=== PATIENT | female | born 1990 | race Caucasian/White ===

== ENCOUNTER 2017-10-12 14:35 | Emergency (ER) | payer OTHER ==
--- NOTE | 2017-10-12 15:14 | RAD REPORT ---
EXAM DESCRIPTION: CT - Head C Spine Mpr Wo Con - 10/12/2017 2:55 pm CLINICAL HISTORY: Head and neck injury status post fall. Head and neck pain. Seizure COMPARISON: None. TECHNIQUE: Computed axial tomography of the head and cervical spine was obtained. Sagittal and coronal reconstruction was performed. All CT scans are performed using dose optimization technique as appropriate and may include automated exposure control or mA/KV adjustment according to patient size. FINDINGS: An intracranial bleed is not seen. The ventricles are normal in caliber. An extra-axial fl uid collection is not noted.Fluid within the visualized sinuses and mastoids is not seen A cervical fracture is not visualized. No dislocation is noted. IMPRESSION: No acute intracranial abnormality is seen. A cervical fracture is not visualized. If the patient continues to have symptoms to suggest intracra nial /spinal cord pathology then MRI would be recommended
[2017-10-12 15:51] LABS: Absolute Lymphocytes (CBC) 2.3 K/uL (0.7-4.9); Absolute Monocytes 0.6 K/uL (0.1-1.3); Absolute Neutrophil 9.8 K/uL (1.8-8.0); Basophils % 0.6 % (0-1.3); Eosinophils % 0.3 % (0-4.4); Hematocrit 45.6 % (36.0-45.0); Lymphocytes % 18.2 % (15.3-44.8); MCV 93.3 fL (80-100); MPV 8.9 fL (7.6-11.3); Monocytes % 4.4 % (3.3-12.3); RBC Red Blood Cell Count 4.89 M/uL (3.86-4.86)
[2017-10-12 16:02] LABS: ALT/SGPT 31 U/L (12-78); AST/SGOT 19 U/L (15-37); Albumin 3.4 g/dL (3.4-5.0); Alkaline Phosphatase 46 U/L (45-117); BUN Blood Urea Nitrogen 10 mg/dL (7-18); Bicarbonate 24 mmol/L (21-32); Bilirubin Total 0.8 mg/dL (0.2-1.0); Glucose Level 84 mg/dL (74-106); Potassium 3.5 mmol/L (3.5-5.1); Protein, Total 7.6 g/dL (6.4-8.2); Sodium Level 140 mmol/L (136-145)
--- NOTE | 2017-10-12 16:15 | ER ---
Nurse's Notes [facility] Name: Meron Newman Age: 27 yrs Sex: Female : 1990 Arrival Date: 10/12/2017 Time: 14:36 Bed External Waiting [facility] MD: Diagnosis: Syncope and collapse-vasovagal syncope Presentation: 10/12 14:44 Presenting complaint: EMS states: pt cut her finger while at work, then sat down because she felt woozy. then passed out face first from the chair onto the hard floor. Pt then had a witnessed seizure, body spazmed up, LOC, and hands clenched and body rocked on floor for about 3 min. pt was aaox4 upon ems arrival, hyperventilating, bgl was 101, given 1L fluids in route due to pt HR being high 90's, now 100's. Transition of care: patient was not received from another setting of care. Onset of symptoms was October 12, 2017 at 14:00. Risk Assessment: Do you want to hurt yourself or someone else? Patient reports no desire to harm self or others. Initial Sepsis Screen: Does the patient meet any 2 criteria? No. Patient's initial sepsis screen is negative. Does the patient have a suspected source of infection? No. Patient's initial sepsis screen is negative. Care prior to arrival: IV initiated. 20 GA, in the right forearm, Glucose check: 101 1L NS. 14:44 Method Of Arrival: EMS: [facility] 14:44 Acuity: AUBREY 3 ch Triage Assessment: 14:30 General: Appears in no apparent distress. comfortable, Behavior is cooperative, ch appropriate for age, anxious. Pain: Complains of pain in forehead, inner aspect of left eyebrow, middle aspect of left eyebrow and outer aspect of left eyebrow Pain currently is 7 out of 10 on a pain scale. Pain began suddenly. Neuro: Level of Consciousness is awake, alert, obeys commands, Oriented to person, place, time, situation, Core Filer are equal bilaterally Moves all extremities. Full function Gait is steady, Speech is normal, Facial symmetry appears normal, Facial symmetry: tongue is midline, Pupils are PERRLA. Cardiovascular: Heart tones S1 S2 present. Respiratory: Airway is patent Respiratory effort is even, unlabored, Breath sounds are clear bilaterally. GI: No signs and/or symptoms were reported involving the gastrointestinal system. Derm: Bruising that is dark purple, on left eye. Musculoskeletal: Circulation, motion, and sensation intact. 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 - Social history:: Smoking status: Patient/guardian denies using tobacco. - Ebola Screening: : Patient negative for fever greater than or equal to 101.5 degrees Fahrenheit, and additional compatible Ebola Virus Disease symptoms Patient denies exposure to infectious person Patient denies travel to an Ebola-affected area in the 21 days before illness onset No symptoms or risks identified at this time. - Family history:: not pertinent. Screenin:52 Abuse screen: Denies threats or abuse. Denies injuries from another. Nutritional ch screening: No deficits noted. Tuberculosis screening: No symptoms or risk factors identified. Fall Risk None identified. Assessment: 14:52 Reassessment: pt in ct now. 16:07 Reassessment: Patient appears in no apparent distress at this time. Patient and/or ch family updated on plan of care and expected duration. Pain level reassessed. Patient is alert, oriented x 3, equal unlabored respirations, skin warm/dry/pink. Patient states feeling better. Patient states symptoms have improved. Neuro: No deficits noted. Cardiovascular: Heart tones present. Respiratory: Airway is patent Respiratory effort is even, unlabored, Breath sounds are clear bilaterally. 17:30 Injury Description: Abrasion sustained to palmar aspect of distal phalanx of left ring ch finger is bleeding, dirty, pt has bleeding, wound cleaned with hydrogen peroxide, dressed with adaptic, neosporin, and kerlex. was sustained 2-4 hours ago. 17:30 Reassessment: Patient appears in no apparent distress at this time. Patient and/or ch family updated on plan of care and expected duration. Pain level reassessed. Patient is alert, oriented x 3, equal unlabored respirations, skin warm/dry/pink. Patient states feeling better. Patient states symptoms have improved. Vital Signs: 14:30 BP 115 / 78; Pulse 94; Resp 15; Temp 98.3; Pulse Ox 99% on R/A; Weight 58.97 kg; Height ch 5 ft. (152.40 cm); Pain 7/10; 16:00 BP 122 / 78; Pulse 81; Resp 16; Pulse Ox 99% on R/A; Pain 3/10; ch 17:00 BP 106 / 62; Pulse 79; Resp 16; Pulse Ox 100% on R/A; ch 14:30 Body Mass Index 25.39 (58.97 kg, 152.40 cm) Patricia Coma Score: 14:30 Eye Response: spontaneous(4). Verbal Response: oriented(5). Motor Response: obeys commands(6). Total: 15. ED Course: 14:30 Arm band placed on left wrist. Patient placed in an exam room, on a stretcher, on pulse ch oximetry. 14:36 Patient arrived in ED. rg4 14:37 Julio Tirado MD is Attending Physician. [facility] 14:43 Alma Grey, RN is Primary Nurse. 14:47 Triage completed. 14:52 Patient has correct armband on for positive identification. Placed in gown. Bed in low ch position. Call light in reach. Side rails up X 1. Adult w/ patient. Seizure precautions initiated. Pulse ox on. NIBP on. 14:52 No provider procedures requiring assistance completed. Maintain EMS IV. Dressing ch intact. Good blood return noted. Site clean \T\ dry. Gauge \T\ site: 20 R FA. 14:55 CT Head C Spine In Process Unspecified. EDMS 16:20 IV discontinued, intact, bleeding controlled, No redness/swelling at site. Pressure ch dressing applied. 18:26 Primary Nurse role handed off by Alma Grey, RN iw Administered Medications: 16:00 Drug: NS 0.9% 1000 ml Route: IV; Rate: 1 bolus; Site: right forearm; 17:00 Follow up: IV Status: Completed infusion; IV Intake: 1000ml 10/13 08:05 Not Given (Patient Refused): Tylenol 650 mg PO once ch Intake: 10/12 17:00 IV: 1000ml; Total: 1000ml. Outcome: 16:14 Discharge ordered by . beatrice 17:12 Patient left the ED. mh5 18:20 Discharged to home ambulatory, with family. 18:20 Condition: improved 18:20 Discharge instructions given to patient, family, Instructed on discharge instructions, follow up and referral plans. medication usage, Demonstrated understanding of instructions, follow-up care. 18:28 Patient left the ED. iw Signatures: Dispatcher [employer] EDMS Alma Grey RN RN ch Anderson, Corey, MD MD cha Williams, Irene RN Farzana Mendiola 4 Awa [facility] Corrections: (The following items were deleted from the chart) 10/13 08: 03:50 Reassessment: Patient appears in no apparent distress at this time. Patient ch and/or family updated on plan of care and expected duration. Pain level reassessed. Patient is alert, oriented x 3, equal unlabored respirations, skin warm/dry/pink. Patient states feeling better. Patient states symptoms have improved. 08: 03:50 Injury Description: Abrasion sustained to palmar aspect of distal phalanx of left ring finger is bleeding, dirty, pt has bleeding 08:08 07:21 Discharged to home ambulatory, with family, [facility] 08:08 07:21 Condition: improved [facility] 08:08 07:21 Discharge instructions given to patient, family, Instructed on discharge instructions, follow up and referral plans. medication usage, Demonstrated understanding of instructions, follow-up care,
--- NOTE | 2017-10-12 16:15 | EDPHYS ---
Physician Documentation [facility] Name: Meron Newman Age: 27 yrs Sex: Female : 1990 Arrival Date: 10/12/2017 Time: 14:36 Bed External Waiting Private MD: ED Physician Julio Tirado HPI: 10/12 16:08 This 27 yrs old Female presents to ER via EMS with complaints of Seizure. beatrice 16:08 The patient presents after having a single isolated seizure, that lasted 1 minute(s). beatrice Character of seizure(s): Loss of consciousness: the patient experienced loss of consciousness, Motor activity: generalized, Incontinence: none, Apnea: the patient did not experience apnea, Circulation: the patient did not experience evidence of pulse disturbance, vasovagal syncope initiated. Seizure onset: just prior to arrival. Context: occurred at work, cut finger, saw blood, hx of vaso vagal. Seizure Hx: Cause: vaso vagal syncope, Last seizure: The patient's last seizure was approximately 20 year(s) ago. Associated injury: Head/face: left eye, contusion, swelling, tenderness. EMS care: none. The patient has experienced similar episodes in the past, a few times. 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 - Social history:: Smoking status: Patient/guardian denies using tobacco. - Ebola Screening: : Patient negative for fever greater than or equal to 101.5 degrees Fahrenheit, and additional compatible Ebola Virus Disease symptoms Patient denies exposure to infectious person Patient denies travel to an Ebola-affected area in the 21 days before illness onset No symptoms or risks identified at this time. - Family history:: not pertinent. ROS: 16:08 Constitutional: Negative for fever, chills, and weight loss, ENT: Negative for injury, beatrice pain, and discharge, Neck: Negative for injury, pain, and swelling, Cardiovascular: Negative for chest pain, palpitations, and edema, Respiratory: Negative for shortness of breath, cough, wheezing, and pleuritic chest pain, Abdomen/GI: Negative for abdominal pain, nausea, vomiting, diarrhea, and constipation, Back: Negative for injury and pain, : Negative for injury, bleeding, discharge, and swelling, MS/Extremity: Negative for injury and deformity, Skin: Negative for injury, rash, and discoloration, Psych: Negative for depression, anxiety, suicide ideation, homicidal ideation, and hallucinations, Allergy/Immunology: Negative for hives, rash, and allergies, Endocrine: Negative for neck swelling, polydipsia, polyuria, polyphagia, and marked weight changes, Hematologic/Lymphatic: Negative for swollen nodes, abnormal bleeding, and unusual bruising. 16:08 Eyes: Positive for pain, swelling, of the left eyebrow and left upper eyelid. 16:08 Neuro: Positive for loss of consciousness, syncope, weakness. Exam: 16:08 Constitutional: This is a well developed, well nourished patient who is awake, alert, beatrice and in no acute distress. Eyes: Pupils equal round and reactive to light, extra-ocular motions intact. Lids and lashes normal. Conjunctiva and sclera are non-icteric and not injected. Cornea within normal limits. Periorbital areas with no swelling, redness, or edema. ENT: Nares patent. No nasal discharge, no septal abnormalities noted. Tympanic membranes are normal and external auditory canals are clear. Oropharynx with no redness, swelling, or masses, exudates, or evidence of obstruction, uvula midline. Mucous membranes moist. Neck: Trachea midline, no thyromegaly or masses palpated, and no cervical lymphadenopathy. Supple, full range of motion without nuchal rigidity, or vertebral point tenderness. No Meningismus. Chest/axilla: Normal chest wall appearance and motion. Nontender with no deformity. No lesions are appreciated. Cardiovascular: Regular rate and rhythm with a normal S1 and S2. No gallops, murmurs, or rubs. Normal PMI, no JVD. No pulse deficits. Respiratory: Lungs have equal breath sounds bilaterally, clear to auscultation and percussion. No rales, rhonchi or wheezes noted. No increased work of breathing, no retractions or nasal flaring. Abdomen/GI: Soft, non-tender, with normal bowel sounds. No distension or tympany. No guarding or rebound. No evidence of tenderness throughout. Back: No spinal tenderness. No costovertebral tenderness. Full range of motion. Skin: Warm, dry with normal turgor. Normal color with no rashes, no lesions, and no evidence of cellulitis. MS/ Extremity: Pulses equal, no cyanosis. Neurovascular intact. Full, normal range of motion. Neuro: Awake and alert, GCS 15, oriented to person, place, time, and situation. Cranial nerves II-XII grossly intact. Motor strength 5/5 in all extremities. Sensory grossly intact. Cerebellar exam normal. Normal gait. Psych: Awake, alert, with orientation to person, place and time. Behavior, mood, and affect are within normal limits. 16:08 Head/face: Noted is contusion, swelling, tenderness, that is mild, of the left eye. Vital Signs: 14:30 BP 115 / 78; Pulse 94; Resp 15; Temp 98.3; Pulse Ox 99% on R/A; Weight 58.97 kg; Height ch 5 ft. (152.40 cm); Pain 7/10; 16:00 BP 122 / 78; Pulse 81; Resp 16; Pulse Ox 99% on R/A; Pain 3/10; ch 17:00 BP 106 / 62; Pulse 79; Resp 16; Pulse Ox 100% on R/A; ch 14:30 Body Mass Index 25.39 (58.97 kg, 152.40 cm) Patricia Coma Score: 14:30 Eye Response: spontaneous(4). Verbal Response: oriented(5). Motor Response: obeys commands(6). Total: 15. MDM: 14:37 Patient medically screened. [facility] 10/12 14:41 Order name: CBC with Diff; Complete Time: 16:08 [facility] 10/12 14:41 Order name: Comprehensive Metabolic Panel; Complete Time: 16:08 [facility] 10/12 14:41 Order name: CT Head C Spine; Complete Time: 16:08 [facility] 10/12 18:27 Order name: Urine Dipstick--Ancillary (enter results) 10/12 18:28 Order name: Urine --Ancillary (enter results) 10/12 14:41 Order name: Urine Dipstick-Ancillary (obtain specimen); Complete Time: 16:30 [facility] 10/12 14:41 Order name: Urine Test (obtain specimen); Complete Time: 16:30 [facility] 10/12 14:41 Order name: Seizure Precautions; Complete Time: 16:30 [facility] 10/12 16:08 Order name: Ice pack; Complete Time: 16:30 [facility] Administered Medications: 16:00 Drug: NS 0.9% 1000 ml Route: IV; Rate: 1 bolus; Site: right forearm; 17:00 Follow up: IV Status: Completed infusion; IV Intake: 1000ml 10/13 08:05 Not Given (Patient Refused): Tylenol 650 mg PO once Disposition: 10/12/17 16:14 Discharged to Home. Impression: Syncope and collapse - vasovagal syncope. - Condition is Stable. - Discharge Instructions: Head Injury, Adult, Syncope, Weakness, Syncope, [id number], Head Injury, Adult, [id number], Vasovagal Syncope, Adult. - Medication Reconciliation Form, Thank You Letter, Antibiotic Education, Prescription Opioid Use, Work release form form. - Follow up: Private Physician; When: 2 - 3 days; Reason: Recheck today's complaints, Continuance of care, Re-evaluation by your physician. - Problem is new. - Symptoms have improved. Signatures: Dispatcher [employer] EDMS Alma Grey RN RN ch Anderson, Corey, MD MD cha Williams, Irene, RN RN Awa [facility] Corrections: (The following items were deleted from the chart) 10/12 17:12 16:14 10/12/2017 16:14 Discharged to Home. Impression: Syncope and collapse - vasovagal mh5 syncope. Condition is Stable. Forms are Medication Reconciliation Form, Thank You Letter, Antibiotic Education, Prescription Opioid Use. Follow up: Private Physician; When: 2 - 3 days; Reason: Recheck today's complaints, Continuance of care, Re-evaluation by your physician. Problem is new. Symptoms have improved. [facility] 18:28 17:12 10/12/2017 16:14 Discharged to Home. Impression: Syncope and collapse - vasovagal iw syncope. Condition is Stable. Discharge Instructions: Syncope, Weakness, Syncope, [id number], Vasovagal Syncope, Adult, Head Injury, Adult, Head Injury, Adult, [id number]. Forms are Medication Reconciliation Form, Thank You Letter, Antibiotic Education, Prescription Opioid Use, Work release form. Follow up: Private Physician; When: 2 - 3 days; Reason: Recheck today's complaints, Continuance of care, Re-evaluation by your physician. Problem is new. Symptoms have improved. mh5
[2017-10-12 19:11] LABS: Urine Blood TRACE (NEG); Urine Glucose NEGATIVE (NEG); Urine Protein NEGATIVE (NEG)
== END 2017-10-12 18:28 | disposition home or self-care (01) ==
LOC: ER 14:35
DX: R55 Syncope and collapse (principal); Z88.0 Allergy status to penicillin
CPT/HCPCS: 36415; 70450; 72125; 80053; 81003; 81025; 85025; 96360; 99284

== ENCOUNTER 2022-12-24 23:15 | Emergency (ER) | payer BC, OTHER ==
--- OUTSIDE RECORDS SUMMARY | 2022-12-24 23:18 | XMS REPORT | Continuity of Care Document ---
:1990 Author Organization [facility] t Address [address] [place] [address] [address] [place] [address] Care Team Providers Name Role Phone Felix Zacarias Attending Clinician Unavailable Lelia Attending Clinician Unavailable Felix Zacarias Admitting Clinician Unavailable Lelia Admitting Clinician Unavailable Physician, No Primary or Family Admitting Clinician Unavaila ble Payers Payer Name Policy Type Policy Number Effective Date Expiration Date S ource Problems This patient has no known problems. Allergies, Adverse Reactions, Alerts This patient has no known allergies or adverse reactions. Medications This patient has no known medications. Procedures This patient has no known procedures. Encounters Start End Encounter Admission Attending Care Care Encounter Source Date/Time Date/Time Type Type Clinicians Facility Department ID 2022-04-02 2022-04-02 Outpatient CHERRY Tapia [facility] [id number] [facility] 12:00:00 12:00:00 [facility], 37 [facility] 2020-06-21 2020-06-21 Outpatient Heatly_K VFP VFP [id number] [facility] 10:53:00 10:53:00 [id number] [facility] 2020-03-28 2020-03-28 Outpatient CHERRY Tapia [facility] [place] [id number] [facility] 12:00:00 12:00:00 [facility], 11 [facility] Results Test Description Test Time Test Comments Results Result Comments Source POTTS BREAST BIOPSY 2018-12-24 16:15:00 RUN DATE: 12/24/18 [facility] PAGE 1 RUN TIME: 1615 Specimen Inquiry RUN USER: INTERFACE CHEL IENT: BECKY DUMONT LOC: GAYATHRI Su #: [id number] AGE/SX: 28/F ROOM: RE12/23/18REG DR: Felix Zacarias : 89 BED: DIS: STATUS: PRE REF TLOC: SPEC #: [id number] RECD: 12/23/18 STATUS: MARY LOU REQ #: [id number] FLOWER: 12/23/[address] [facility] [address]: Felix Zacarias MD ENTERED: 12/23/18 SP TYPE: KATLYN MASTERSON DR: No Primary or Family PhysicianORDERED: KATLYN BILLING COPIES TO: No Primary or Family Physician Felix Zacarias MD [id number] [address] HISTOLOGY: TISSUE ID BLK PCS JOSE M LEV PROCEDURE DISPOSITION ____ ___ ___ ___ BREAST, NOS A 1 2 PROCEDURES: KATLYN RODRIGUEZ (12/23/18-1423) TISSUES: A. BREAST, NOS - RIGHT BREAST MASS BIOPSY @ 11:00 KATLYN PATHOLOGY REPORT Result ID: [id number] Clinical History Right breast mass Diagnosis Breast, right, @ 11 o'clock, 6 cm from nipple, ultrasound-guided biopsy: FIBROADENOMA Gross Description "Right breast mass biopsy @ 11 o'clock, 6 cm from nipple" Received in formalin are three thin cores of valdivia soft tissue, 0.3 - 1.2 cm in greatest dimension. The entire specimen is submitted as A. /pdb Fixation time: The specimen was obtained on December 23, 2018 and placed in formalin at 1325 [address], processor started on December 24, 2018 at 0[address], fixation time 13 hours 35 minutes. CONTINUED ON NEXT PAGE RUN DATE: 12/24/18 [facility] PAGE 2 RUN TIME: 1615 Specimen Inquiry RUN USER: INTERFACE ALEKSANDR [place] #: [id number] PATIENT: BECKY DUMONT #[id number] (Continued)-------- -------- POTTS PATHOLOGY REPORT (Continued) Microscopic Findings "Right breast mass biopsy @ 11 o'clock, 6 cm from nipple" Sections demonstrate breast parenchyma. Portions of parenchyma demonstrate prominent fibrous tissue with associated branching ductal structures. No evidence of atypical hyperplasia, carcinoma in situ, or invasive carcinoma is seen. ELECTRONIC SIGNATURE Bhargav Bahena M.D. [phone]------- --------- Signed SIGNATURE ON Bhargav Cabrera 12/24/18 1615 END OF REPORT
[2022-12-25 00:40] LABS: Absolute Lymphocytes (CBC) 3.7 K/uL (0.7-4.9); Hematocrit 40.7 % (36.0-45.0); MCV 92.8 fL (80-100); MPV 8.8 fL (7.6-11.3); Platelets 273 thou/uL (152-406); RBC Red Blood Cell Count 4.39 M/uL (3.86-4.86)
[2022-12-25 00:47] LABS: Protime INR 0.9
[2022-12-25 00:48] LABS: Specific Gravity 1.021 (1.005-1.030); Urine Bacteria None Seen /HPF (<20); Urine Bilirubin NEGATIVE (Negative); Urine Blood Negative (Negative); Urine Clarity Extremely Turbid (Clear); Urine Color Light-Yellow (Yellow); Urine Glucose NEGATIVE (Negative); Urine Mucus Slight /HPF (None Seen); Urine Protein 1+ (Negative); Urine RBC <5 /HPF (None Seen); Urine Urobilinogen Normal (Normal); Urine pH 6.5 (5.0-7.0)
[2022-12-25] MEDS ORDERED: NA CHLORIDE 0.9% 1,000 ML ONE (00:51)
[2022-12-25 02:23] LABS: Potassium 3.3 mEq/L (3.5-5.1); Sodium Level 141 mEq/L (136-145)
[2022-12-25 02:26] LABS: Albumin 2.9 g/dL (3.4-5.0); BUN Blood Urea Nitrogen 14 mg/dL (7-18); Bicarbonate 29 mEq/L (21-32); Glucose Level 122 mg/dL (74-106); Magnesium 2.1 mg/dL (1.6-2.4)
[2022-12-25 02:28] LABS: Bilirubin Direct 0.2 mg/dL (0-0.2); Glomerular Filtration Rate 93 ml/min (=/>90)
[2022-12-25 02:29] LABS: ALT/SGPT 29 U/L (13-56); AST/SGOT 12 U/L (15-37)
[2022-12-25 02:30] LABS: Bilirubin Indirect, Calculated 0.3 mg/dL (0.2-0.8); Bilirubin Total 0.5 mg/dL (0.2-1.0); Protein, Total 6.6 g/dL (6.4-8.2)
[2022-12-25 02:31] LABS: Alkaline Phosphatase 56 U/L (45-117)
[2022-12-25 02:34] LABS: Ferritin 50.5 ng/mL (8-388); NT PRO-BNP 36 pg/mL (<125); Troponin High Sensitivity < 3.0 pg/mL (<58.9)
--- NOTE | 2022-12-25 02:47 | ER ---
Nurse's Notes [facility] Name: Meron Newman Age: 32 yrs Sex: Female : 1990 Arrival Date: 12/24/2022 Time: 23:15 Bed 12 Private MD: Diagnosis: Syncope Near-VASOVAGAL;Weakness;Hypokalemia Presentation: 12/24 23:18 Chief complaint: Patient states: left flank pain with nausea. went to restroom to vomit lg3 and woke up sometime after with face on toilet rim. episode unwitnessed. pain to upper lip and forehead. Coronavirus screen: Client denies travel out of the [place] in the last 14 days. At this time, the client does not indicate any symptoms associated with coronavirus-19. Ebola Screen: No symptoms or risks identified at this time. Initial Sepsis Screen: Does the patient meet any 2 criteria? No. Patient's initial sepsis screen is negative. Does the patient have a suspected source of infection? No. Patient's initial sepsis screen is negative. Risk Assessment: Do you want to hurt yourself or someone else? Patient reports no desire to harm self or others. Onset of symptoms was December 24, 2022. 23:18 Method Of Arrival: Ambulatory lg3 23:18 Acuity: AUBREY 3 lg3 Triage Assessment: 23:21 General: Appears in no apparent distress. comfortable, Behavior is calm, cooperative. lg3 Pain: Complains of pain in face and back. EENT: No deficits noted. Neuro: Mortensen Agitation-Sedation Scale (RASS): -1 Drowsy Level of Consciousness is awake, alert, obeys commands, Oriented to person, place, time, situation. Cardiovascular: No deficits noted. Denies chest pain, shortness of breath, Capillary refill < 3 seconds Clubbing of nail beds is absent JVD is absent Patient's skin is warm and dry. Respiratory: No deficits noted. Airway is patent Respiratory effort is even, unlabored, Respiratory pattern is regular, symmetrical. GI: No deficits noted. No signs and/or symptoms were reported involving the gastrointestinal system. : No deficits noted. No signs and/or symptoms were reported regarding the genitourinary system. Derm: No deficits noted. No signs and/or symptoms reported regarding the dermatologic system. Skin is intact, is healthy with good turgor, Skin is dry, Skin is normal, Skin temperature is warm. Musculoskeletal: No deficits noted. Circulation, motion, and sensation intact. Range of motion: intact in all extremities. 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 - Social history:: Smoking status: Patient denies any tobacco usage or history of. Patient uses alcohol, occasionally. - Family history:: not pertinent. Screenin/09 00:32 [facility] ED Fall Risk Assessment (Adult) History of falling in the last 3 months, vc1 including since admission Yes- physiologic fall (2 pts) Confusion or Disorientation No (0 pts) Intoxicated or Sedated No (0 pts) Impaired Gait No (0 pts) Mobility Assist Device Used No (0 pt) Altered Elimination No (0 pt) Score/Fall Risk Level 0 - 2 = Low Risk Oriented to surroundings, Maintained a safe environment, Educated pt \T\ family on fall prevention, incl call for assistance when getting out of bed. Abuse screen: Denies threats or abuse. Nutritional screening: No deficits noted. Tuberculosis screening: No symptoms or risk factors identified. Assessment: 00:41 Reassessment: Patient and/or family updated on plan of care and expected duration. Pain vc1 level reassessed. Patient is alert, oriented x 3, equal unlabored respirations, skin warm/dry/pink. Patient states feeling better. Patient states symptoms have improved. 03:28 Reassessment: Patient and/or family updated on plan of care and expected duration. Pain vc1 level reassessed. Patient is alert, oriented x 3, equal unlabored respirations, skin warm/dry/pink. Patient states feeling better. Patient states symptoms have improved. Vital Signs: 12/24 23:18 BP 131 / 83; Pulse 80; Resp 17 S; Temp 98.4(O); Pulse Ox 99% on R/A; Weight 70.31 kg lg3 (R); Height 5 ft. 1 in. (R); 12/25 00:41 BP 114 / 89; Pulse 98; Resp 18; Pulse Ox 98% ; vc1 01:00 BP 120 / 80; Pulse 86; Resp 18; Pulse Ox 100% ; vc1 02:00 BP 113 / 83; Pulse 84; Resp 18; Pulse Ox 99% ; vc1 03:00 BP 107 / 75; Pulse 88; Resp 18; Pulse Ox 99% ; vc1 03:27 BP 113 / 69 Supine; Pulse 91; vc1 03:27 BP 113 / 69 Sitting; Pulse 91; vc1 03:27 BP 119 / 82 Standing; Pulse 87; vc1 12/24 23:18 Body Mass Index 29.29 (70.31 kg, 154.94 cm) lg3 ED Course: 12/24 23:18 Patient arrived in ED. lg3 23:20 Triage completed. lg3 23:21 Arm band placed on left wrist. lg3 23:22 Julio Tirado MD is Attending Physician. beatrice 23:36 Marissa Kyle, DAWNA is Primary Nurse. vc1 23:42 XRAY Chest (1 view) In Process Unspecified. EDMS 11 00:32 Patient has correct armband on for positive identification. Bed in low position. Call vc1 light in reach. Client placed on continuous cardiac and pulse oximetry monitoring. NIBP monitoring applied. 00:37 Inserted saline lock: 20 gauge in left upper arm, using aseptic technique. ultrasound as6 guided, long catheter. 01:41 CT Stone Protocol In Process Unspecified. EDMS 01:41 CT Head Brain wo Cont In Process Unspecified. EDMS 02:46 Twan Canales MD is Referral Physician. beatrice 03:41 No provider procedures requiring assistance completed. IV discontinued, intact, vc1 bleeding controlled, No redness/swelling at site. Pressure dressing applied. Administered Medications: 00:41 Drug: NS 0.9% IV 1000 ml IV at 1 bolus Per protocol; 1000 mL bolus Route: IV; Rate: 1 vc1 bolus; Site: left antecubital; 02:00 Follow up: IV Status: Completed infusion vc1 03:25 Drug: Potassium PO Effervescent Tablet 25 mEq PO once; dissolve in 4 ounces of water or vc1 juice Route: PO; 03:41 Follow up: Response: No adverse reaction; Marked relief of symptoms vc1 Medication: 00:32 VIS not applicable for this client. vc1 Outcome: 02:47 Discharge ordered by MD. barron 03:41 Discharged to home ambulatory, with significant other, vc1 03:41 Condition: good 03:41 Discharge instructions given to patient, Instructed on discharge instructions, follow up and referral plans. medication usage, Demonstrated understanding of instructions, follow-up care, medications, Prescriptions given X 1, 03:42 Patient left the ED. vc1 Signatures: Dispatcher [employer] EDMS Julio Tirado MD MD cha Gibson, Lacie RN RN lg3 Oren Llamas RN RN as6 Marissa Kyle RN RN vc1
--- NOTE | 2022-12-25 02:47 | EDPHYS ---
Physician Documentation [facility] Name: Meron Newman Age: 32 yrs Sex: Female : 1990 Arrival Date: 12/24/2022 Time: 23:15 Bed 12 Private MD: KASSANDRA Physician Julio Tirado HPI: 12/24 23:42 This 32 yrs old Female presents to ER via Ambulatory with complaints of beatrice syncope at home, left flank pain. 23:42 The patient complains of pain in the left low back and left mid back. The pain radiates beatrice to the left low back and left mid back. Onset: The symptoms/episode began/occurred just prior to arrival. Modifying factors: The symptoms are alleviated by nothing. the symptoms are aggravated by nothing. The patient presents with pain that is acute, with no known mechanism of injury. The symptoms are located in the left low back and left mid back. Associated signs and symptoms: Pertinent positives: nausea, weakness. 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 - Social history:: Smoking status: Patient denies any tobacco usage or history of. Patient uses alcohol, occasionally. - Family history:: not pertinent. ROS: 23:42 Constitutional: Negative for fever, chills, and weight loss, Eyes: Negative for injury, beatrice pain, redness, and discharge, ENT: Negative for injury, pain, and discharge, Neck: Negative for injury, pain, and swelling, Cardiovascular: Negative for chest pain, palpitations, and edema, Respiratory: Negative for shortness of breath, cough, wheezing, and pleuritic chest pain, Abdomen/GI: Negative for abdominal pain, nausea, vomiting, diarrhea, and constipation, : Negative for injury, bleeding, discharge, and swelling, MS/Extremity: Negative for injury and deformity, Skin: Negative for injury, rash, and discoloration, Psych: Negative for depression, anxiety, suicide ideation, homicidal ideation, and hallucinations, Allergy/Immunology: Negative for hives, rash, and allergies, Endocrine: Negative for neck swelling, polydipsia, polyuria, polyphagia, and marked weight changes, Hematologic/Lymphatic: Negative for swollen nodes, abnormal bleeding, and unusual bruising, 23:42 Back: Positive for pain at rest, pain with movement, flank pain, on the left, 23:42 Neuro: Positive for headache, Exam: 23:42 Constitutional: This is a well developed, well nourished patient who is awake, alert, beatrice and in no acute distress. Head/Face: Normocephalic, atraumatic. Eyes: Pupils equal round and reactive to light, extra-ocular motions intact. Lids and lashes normal. Conjunctiva and sclera are non-icteric and not injected. Cornea within normal limits. Periorbital areas with no swelling, redness, or edema. ENT: Nares patent. No nasal discharge, no septal abnormalities noted. Tympanic membranes are normal and external auditory canals are clear. Oropharynx with no redness, swelling, or masses, exudates, or evidence of obstruction, uvula midline. Mucous membranes moist. Neck: Trachea midline, no thyromegaly or masses palpated, and no cervical lymphadenopathy. Supple, full range of motion without nuchal rigidity, or vertebral point tenderness. No Meningismus. Chest/axilla: Normal chest wall appearance and motion. Nontender with no deformity. No lesions are appreciated. Cardiovascular: Regular rate and rhythm with a normal S1 and S2. No gallops, murmurs, or rubs. Normal PMI, no JVD. No pulse deficits. Respiratory: Lungs have equal breath sounds bilaterally, clear to auscultation and percussion. No rales, rhonchi or wheezes noted. No increased work of breathing, no retractions or nasal flaring. Abdomen/GI: Soft, non-tender, with normal bowel sounds. No distension or tympany. No guarding or rebound. No evidence of tenderness throughout. Back: No spinal tenderness. No costovertebral tenderness. Full range of motion. Skin: Warm, dry with normal turgor. Normal color with no rashes, no lesions, and no evidence of cellulitis. MS/ Extremity: Pulses equal, no cyanosis. Neurovascular intact. Full, normal range of motion. Neuro: Awake and alert, GCS 15, oriented to person, place, time, and situation. Cranial nerves II-XII grossly intact. Motor strength 5/5 in all extremities. Sensory grossly intact. Cerebellar exam normal. Normal gait. Psych: Awake, alert, with orientation to person, place and time. Behavior, mood, and affect are within normal limits. 23:42 Neck: External neck: is normal, no abrasions, no abscess, no cellulitis, no ecchymosis, no erythema, no laceration, no mass, no rash, no swelling, no tenderness, C-spine: no acute changes, Trachea: no acute changes, ROM/movement: no acute changes, pain, is not appreciated, limited range of motion, is not appreciated, Lymph nodes: no appreciated lymphadenopathy, 23:54 ECG was reviewed by the Attending Physician. beatrice 23:55 Musculoskeletal/extremity: DVT Exam: No signs of deep vein thrombosis. no pain, no beatrice swelling, no tenderness, negative Homans' sign noted on exam, no appreciated bluish discoloration, no erythema, no increased warmth, Vital Signs: 23:18 BP 131 / 83; Pulse 80; Resp 17 S; Temp 98.4(O); Pulse Ox 99% on R/A; Weight 70.31 kg lg3 (R); Height 5 ft. 1 in. (R); 12/25 00:41 BP 114 / 89; Pulse 98; Resp 18; Pulse Ox 98% ; vc1 01:00 BP 120 / 80; Pulse 86; Resp 18; Pulse Ox 100% ; vc1 02:00 BP 113 / 83; Pulse 84; Resp 18; Pulse Ox 99% ; vc1 03:00 BP 107 / 75; Pulse 88; Resp 18; Pulse Ox 99% ; vc1 03:27 BP 113 / 69 Supine; Pulse 91; vc1 03:27 BP 113 / 69 Sitting; Pulse 91; vc1 03:27 BP 119 / 82 Standing; Pulse 87; vc1 12/24 23:18 Body Mass Index 29.29 (70.31 kg, 154.94 cm) lg3 MDM: 12/24 23:22 Patient medically screened. beatrice 23:47 Differential diagnosis: nephrolithiasis, pyelonephritis, UTI, Fracture beatrice Ureterolithiasis. Differential Diagnosis: cardiac arrhythmia, GI bleed, pseudo seizure, seizure, vasovagal episode. Data reviewed: vital signs, nurses notes, lab test result(s), EKG, radiologic studies, CT scan. Consideration of Admission/Observation Escalation of care including admission/observation considered. I considered the following discharge prescriptions or medication management in the emergency department Medications were administered in the Emergency Department. See MAR. Independent interpretation of the following test(s) in the Emergency Department EKG: See my EKG interpretation above. Test considered but Not performed: MRI: no mri brain. Historians other than the Patient: Spouse/Significant Other: well informed. Care significantly affected by the following chronic conditions: seizures. 12/24 23:25 Order name: Basic Metabolic Panel; Complete Time: 02:44 [facility] 12/24 23:25 Order name: CBC with Diff; Complete Time: 01:05 [facility] 12/24 23:25 Order name: LFT's; Complete Time: 02:44 [facility] 12/24 23:25 Order name: Magnesium; Complete Time: 02:44 [facility] 12/24 23:25 Order name: NT PRO-BNP; Complete Time: 02:44 [facility] 12/24 23:25 Order name: PT-INR; Complete Time: 01:05 [facility] 12/24 23:25 Order name: Troponin HS; Complete Time: 02:44 [facility] 12/24 23:25 Order name: Urinalysis w/ reflexes; Complete Time: 01:05 [facility] 12/24 23:25 Order name: PREGU; Complete Time: 01:05 [facility] 12/24 23:25 Order name: Iron Level; Complete Time: 02:44 [facility] 12/24 23:25 Order name: XRAY Chest (1 view) [facility] 12/24 23:25 Order name: CT Stone Protocol [facility] 12/24 23:25 Order name: CT Head Brain wo Cont 12/24 23:25 Order name: EKG; Complete Time: 23:25 [facility] 12/24 23:25 Order name: Cardiac monitoring; Complete Time: 00:51 [facility] 12/24 23:25 Order name: EKG - Nurse/Tech; Complete Time: 23:51 [facility] 12/24 23:25 Order name: IV Saline Lock; Complete Time: 00:37 [facility] 12/24 23:25 Order name: Labs collected and sent; Complete Time: 00:51 [facility] 12/24 23:25 Order name: O2 Per Protocol; Complete Time: 23:51 [facility] 12/24 23:25 Order name: O2 Sat Monitoring; Complete Time: 23:51 beatrice 12/25 00:45 Order name: Misc. Order: RECOLLECT GREEN TOP; Complete Time: 00:50 rv1 12/25 02:24 Order name: PO challenge: gatorade; Complete Time: 03:41 beatrice 12/25 02:45 Order name: Orthostatics; Complete Time: 03:25 beatrice EC:54 Rate is 101 beats/min. Rhythm is regular. QRS [place] is Normal. OR interval is normal. beatrice QRS interval is normal. QT interval is normal. No Q waves. T waves are Normal. No ST changes noted. Clinical impression: NSR w/ Non-specific ST/T Changes and No evidence of ischemia. Interpreted by me. Reviewed by me. Administered Medications: 12/25 00:41 Drug: NS 0.9% IV 1000 ml IV at 1 bolus Per protocol; 1000 mL bolus Route: IV; Rate: 1 vc1 bolus; Site: left antecubital; 02:00 Follow up: IV Status: Completed infusion vc1 03:25 Drug: Potassium PO Effervescent Tablet 25 mEq PO once; dissolve in 4 ounces of water or vc1 juice Route: PO; 03:41 Follow up: Response: No adverse reaction; Marked relief of symptoms vc1 Disposition Summary: 12/25/22 02:47 Discharge Ordered Notes: Location: Home beatrice Problem: new beatrice Symptoms: have improved beatrice Condition: Stable beatrice Diagnosis - Syncope Near - VASOVAGAL beatrice - Weakness beatrice - Hypokalemia beatrice Followup: beatrice - With: Private Physician - When: 2 - 3 days - Reason: Recheck today's complaints, Continuance of care, Re-evaluation by your physician Followup: beatrice - With: Twan Canales MD - When: 2 - 3 days - Reason: Recheck today's complaints, Continuance of care, Re-evaluation by your physician Discharge Instructions: - Discharge Summary Sheet beatrice - Potassium Content of Foods beatrice - Near-Syncope beatrice - Weakness beatrice - Near-Syncope, Thlv-jt-Rpri beatrice - Weakness, Uelz-dh-Dsel beatrice - Hypokalemia beatrice Forms: - Medication Reconciliation Form beatrice - Thank You Letter beatrice - Antibiotic Education beatrice - Prescription Opioid Use beatrice - Patient Portal Instructions beatrice - Leadership Thank You Letter [facility] Prescriptions: - ondansetron 4 mg Oral Tablet,disintegrating - take 1 tablet ORAL route every 6-8 hours for 5 days give 1st dose 30min before beatrice emetogenic chemo; 20 tablet; Refills: 0, Product Selection Permitted Signatures: Dispatcher [employer] Julio Gallegos MD MD cha Gibson, Lacie RN RN lg3 Marissa Kyle RN RN vc1 Sergio, Shazia 1
[2022-12-25] MEDS ORDERED: POTASSIUM 25 MEQ EFFERV TAB ONE (03:31)
[2022-12-25 03:52] VITALS: TEMP 98.4
[2022-12-25 04:13] VITALS: O2SAT 99
[2022-12-25 04:16] VITALS: BP 119/82
--- NOTE | 2022-12-25 13:46 | RAD REPORT ---
EXAM DESCRIPTION: RAD - Chest Single View - 12/24/2022 11:40 pm CLINICAL HISTORY: 32 years Female COUGH COMPARISON: None TECHNIQUE: AP view of the chest was obtained. FINDINGS: Cardiac size is within normal limits. Central vessels are not increased. No infiltrates or effusions seen. No consolidation. No pneumothorax. IMPRESSION: No active disease. Electronically signed by: Mariel Harris MD 12/24/2022 11:50 PM RN RELIEF CHARGE Due to temporary technical issues with the PACS/Fluency reporting system, reports are being signed by the in house radiologist without review as a courtesy to ensure prompt reporting. The interpreting r adiologist is fully responsible for the content of the report.
--- NOTE | 2022-12-25 13:58 | RAD REPORT ---
EXAM DESCRIPTION: CT - Head Brain Wo Cont - 12/25/2022 6:51 am CLINICAL HISTORY: 32 years, Female, Dizziness;Syncope COMPARISON: None. FINDINGS: Multiple transaxial tomograms of the brain were obtained from the base of the skull to the vertex without contrast. An individualized dose optimization technique, Automated Exposure Control, was utilized for the perfo rmed procedure. Brain parenchyma as well as the pink and white matter differentiation demonstrate to be unremarkable. There is no evidence for acute intraparenchymal hemorrhage. There is midline shift and/or mass effec t. No focal areas of hypodensities. Lateral ventricles and cisterns displace normal appearance. N o intra or extra axial fluid collections were seen. The calvarium demonstrate to be within normal nuno its with no evidence for acute bony injuries. The visualized portions of the paranasal sinuses and or bits demonstrate to be clear. IMPRESSION: No evidence for acute intraparenchymal hemorrhage. Unremarkable CT scan of the head without contrast. Electronically signed by: Drew Grier MD 12/25/2022 02:29 AM WEIGHT CONTROL LECTURER Due to temporary technical issues with the PACS/Fluency reporting system, reports are being signed by the in house radiologist without review as a courtesy to ensure prompt reporting. The interpreting r adiologist is fully responsible for the content of the report.
--- NOTE | 2022-12-25 14:00 | RAD REPORT ---
EXAM DESCRIPTION: CT - Stone Protocol - 12/25/2022 6:51 am CLINICAL HISTORY: 32 years Female; FLANK PAIN; Bed:12 TECHNIQUE: CT of the abdomen and pelvis without contrast. All CT scans at this facility use dose modulation, iterative reconstruction, and/or weight based dosi ng when appropriate to reduce radiation dose to as low as reasonably achievable. COMPARISON: None. FINDINGS: Lower thorax: Bibasilar atelectasis. Abdomen: Stomach: Within normal limits Liver: No focal lesions. No intrahepatic ductal distention. Gallbladder: Nondistended Pancreas: Within normal limits Spleen: Within normal limits Right kidney: No hydronephrosis. No renal or ureteral calculi. Left kidney: No hydronephrosis. No renal or ureteral calculi. Adrenal glands: Within normal limits Vascular structures: Within normal limits (although limited evaluation on noncontrast exam). Lymph nodes: No lymphadenopathy by size criteria Pelvis: Small bowel: No significant distention. Appendix: Not visualized. No pericecal inflammatory changes. Colon: No distention or acute pericolonic edema. Peritoneum: No free intraperitoneal fluid or air. Bones: No acute bone findings. Bladder: Unremarkable. Reproductive organs: No acute findings. Note that evaluation of the bowel and solid organs is somewhat limited due to lack of intravenous and oral contrast. IMPRESSION: No acute abdominopelvic findings. Electronically signed by: Oliver Bryan MD 12/25/2022 02:24 AM BACON SKINNER Due to temporary technical issues with the PACS/Fluency reporting system, reports are being signed by the in house radiologist without review as a courtesy to ensure prompt reporting. The interpreting r adiologist is fully responsible for the content of the report.
--- NOTE | 2022-12-27 14:17 | EKG ---
Test Date: 2022-12-24 Test Time: 23:46:07 Computer Network Support Specialist: RICHARD MEASUREMENT RESULTS: Intervals: Rate: 101 [place]: 130 QRSD: 80 QT: 342 QTc: 443 [place]: P: 64 [place]: 130 QRS: 85 T: 19 INTERPRETIVE STATEMENTS: Sinus tachycardia T wave abnormality, consider inferior ischemia Abnormal ECG No previous ECG available for comparison Electronically Signed On 12-27-22 14:09:31 ASSAYER HELPER by Twan Canales
== END 2022-12-25 03:42 | disposition home or self-care (01) ==
LOC: ER 23:15
DX: R55 Syncope and collapse (principal); E87.6 Hypokalemia; R53.1 Weakness; Z88.0 Allergy status to penicillin
CPT/HCPCS: 93005; 85025; 81001; 80048; 36415; 83735; 81025; 85610; 80076; 84484; 82728; 83880; 70450; 76377; 74176; 71045; 96360; 99284; J7030